=== PATIENT | female | born 1960 ===

== ENCOUNTER → 2021-07-22 | Outpatient (CLI) | payer SELFPAY ==
[2021-07-25 03:10] LABS: CHLAMYDIA BY NAA Negative (Negative); GONOCOCCUS BY NAA Negative (Negative); TRICH VAG BY NAA Negative (Negative)
== END ==
LOC: LAB SHORT 09:19
PROVIDERS: Physician Assistant
DX: N89.8 Other specified noninflammatory disorders of vagina (principal); N39.0 Urinary tract infection, site not specified
CPT/HCPCS: 87070; 87077; 87086; 87186; 87205; 87491; 87591; 87661